=== PATIENT | female | born 1960 | race African-American/Black ===

== ENCOUNTER 2019-07-15 14:07 | Emergency (ER) | payer MEDICARE, MEDICAID ==
[~2019-07-15] VITALS: Ht 165.1 cm; Wt 154.6 kg
[~2019-07-15 14:07] MED LIST: CEPH-571 PO; CLON-529 PO; FURO-150 PO; LOSA25TA96 PO; METF500T PO; OMEP-84 PO; POTA8TAB46 PO
[2019-07-15 14:12] VITALS: BP 170/90
[2019-07-15] MEDS ORDERED: ROBCFL PO (15:43)
[2019-07-15] MEDS ORDERED: ALBU8HFA PO (15:43)
[2019-07-15] MEDS ORDERED: AMOX-580 PO (15:43)
== END 2019-07-15 16:02 | disposition home or self-care (01) ==
LOC: ER 14:08
DX: J20.9 Acute bronchitis, unspecified (principal); J32.9 Chronic sinusitis, unspecified; K21.9 Gastro-esophageal reflux disease without esophagitis; I10 Essential (primary) hypertension; E11.9 Type 2 diabetes mellitus without complications; M19.90 Unspecified osteoarthritis, unspecified site; G89.29 Other chronic pain; Z90.710 Acquired absence of both cervix and uterus; Z90.89 Acquired absence of other organs; Z98.890 Other specified postprocedural states; Z88.5 Allergy status to narcotic agent; Z79.84 Long term (current) use of oral hypoglycemic drugs; Z79.899 Other long term (current) drug therapy
CPT/HCPCS: 82948; 99283

== ENCOUNTER 2019-08-19 09:34 | Emergency (ER) | payer MEDICARE, MEDICAID ==
[~2019-08-19] VITALS: Ht 165.1 cm; Wt 154.6 kg
[2019-08-19 11:24] VITALS: BP 183/99
== END 2019-08-19 11:27 | disposition home or self-care (01) ==
LOC: ER 09:35
DX: S80.12XA Contusion of left lower leg, initial encounter (principal); I10 Essential (primary) hypertension; K21.9 Gastro-esophageal reflux disease without esophagitis; E11.9 Type 2 diabetes mellitus without complications; M19.90 Unspecified osteoarthritis, unspecified site; G89.29 Other chronic pain; Z90.710 Acquired absence of both cervix and uterus; Z90.89 Acquired absence of other organs; Z88.5 Allergy status to narcotic agent; Z79.899 Other long term (current) drug therapy; V00.811A Fall from moving wheelchair (powered), initial encounter; Y93.89 Activity, other specified; Y92.89 Other specified places as the place of occurrence of the external cause; Y99.9 Unspecified external cause status
CPT/HCPCS: 73590; 99284

== ENCOUNTER 2019-08-26 12:45 | Inpatient (IN) | payer MEDICARE, MEDICAID ==
[~2019-08-26] VITALS: Ht 165.1 cm; Wt 154.0 kg
[2019-08-26] MEDS ORDERED: predniSONE 20 mg tablet PO ONE (14:10)
[2019-08-26] MEDS ORDERED: ipratropium/albuterol 3ml nebule NEB ONE ×2 (14:10→16:00)
[2019-08-26 15:26] LABS: BASOPHILS # (AUTO) 0.1 X10'3 (0-0.2); BASOPHILS % (AUTO) 1.5 % (0-1); EOSINOPHILS # (AUTO) 0.1 X10'3 (0-0.9); EOSINOPHILS % (AUTO) 0.6 % (0-6); HEMATOCRIT 45.8 % (35.0-45.0); HEMOGLOBIN 14.9 g/dl (12.0-16.0); LYMPHOCYTES # (AUTO) 2.7 X10'3 (1.1-4.8); MEAN CORPUSCULAR HEMOGLOBIN 30.7 PG (27.0-31.0); MEAN CORPUSCULAR HGB CONC 32.5 g/dL (33.0-36.5); MEAN CORPUSCULAR VOLUME 94.6 FL (78-98); MEAN PLATELET VOLUME 9.9 FL (7.4-10.4); MONOCYTES # (AUTO) 0.6 X10'3 (0-0.9); MONOCYTES % (AUTO) 6.7 % (2-12); NEUTROPHILS # (AUTO) 5.2 X10'3 (1.8-7.7); NEUTROPHILS % (AUTO) 60.2 % (42-75); PLATELET COUNT 232 X10'3 (140-440); RED BLOOD COUNT 4.84 X10'6 (4.20-5.60); RED CELL DISTRIBUTION WIDTH 13.5 % (11.5-14.5); WHITE BLOOD COUNT 8.7 X10'3 (4.5-11.0)
[2019-08-26] MEDS ORDERED: ondansetron 4mg rapidly disintigrating tab PO ONE (15:30)
[2019-08-26 16:13] LABS: ALANINE AMINOTRANSFERASE 16 U/L (12-78); ALBUMIN 2.9 G/DL (3.4-5.0); ALBUMIN/GLOBULIN RATIO 0.5 (1.1-1.5); ALKALINE PHOSPHATASE 71 IU/L (46-116); ANION GAP 3 (8-16); ASPARTATE AMINO TRANSFERASE 14 U/L (10-37); BILIRUBIN,TOTAL 0.4 MG/DL (0.1-1.0); BLOOD UREA NITROGEN 23 MG/DL (7-18); BUN/CREATININE RATIO 18.7 (6.6-38.0); CALCIUM 8.3 MG/DL (8.5-10.1); CHLORIDE 107 MMOL/L (99-107); CREATININE 1.23 MG/DL (0.40-0.90); GLUCOSE 100 MG/DL (70-104); SODIUM 144 MMOL/L (135-145); TOTAL CARBON DIOXIDE 33.9 MMOL/L (24-32); TOTAL PROTEIN 8.4 G/DL (6.4-8.2); eGFR 54 ML/MIN
[2019-08-26] MEDS ORDERED: azithromycin/NS 500mg/250ml 250 ML IV ONE (16:40)
[2019-08-26] MEDS ORDERED: magnesium 4gm in 100ml NS 100 ML IV PRN (17:05)
[2019-08-26] MEDS ORDERED: magnesium Cl slow-release 64mg tablet PO PRN (17:05)
[2019-08-26] MEDS ORDERED: potassium Cl 20 mEq SR tablet PO PRN ×2 (17:05)
[2019-08-26] MEDS ORDERED: ipratropium/albuterol 3ml nebule NEB PRN ×2 (17:05)
[2019-08-26] MEDS ORDERED: potassium CL 10mEq/100ml bag 100 ML IV PRN ×2 (17:05)
[2019-08-26] MEDS ORDERED: ondansetron/PF 4mg/2ml inj IV PRN (17:05)
[2019-08-26] MEDS ORDERED: acetaminophen 325mg tablet PO PRN (17:05)
[2019-08-26] MEDS ORDERED: magnesium 2GM in 50ml NS 50 ML IV PRN (17:05)
[2019-08-26] MEDS ORDERED: furosemide 10 MG/1 ML 10ml inj IV ONE (17:35)
[2019-08-26] MEDS: K and/or MAG REPLACEMENT MC SCH (20:00)
[2019-08-26] MEDS ORDERED: cloNIDine 0.1 mg tablet PO ONE (20:25)
--- NOTE | 2019-08-26 20:25 | NUR ---
brought up from [facility] of urine amb few steps gurney to the bed. tolerated fair. skin care done settled into bed. orientated to the unit.vitals taken.
[2019-08-26] MEDS ORDERED: glucagon, human recombinant 1mg kit SUBCUT PRN (20:30)
[2019-08-26] MEDS ORDERED: MESSAGE TO PHARMACY PO ONE (20:30)
[2019-08-26] MEDS ORDERED: dextrose ORAL solution 15 GM/59 ML bottle PO PRN ×2 (20:30)
[2019-08-26] MEDS ORDERED: dextrose 50%-water 50ml dispensing syringe IV PRN ×2 (20:30)
--- NOTE | 2019-08-26 20:31 | NUR ---
Patient in room ED 2. I have received report from DELANO YBARRA RN and had the opportunity to ask questions and will assume patient care upon arrival to the floor. Addendum: 08/26/19 at 2031 by Grace Mitchell RN Amended: Links added.
[2019-08-26 20:58] VITALS: BP 169/105
[2019-08-26] MEDS: heparin, porcine 5000 units/ml vial SQ SCH (21:25)
--- NOTE | 2019-08-26 21:26 | NUR ---
pt put on tel #6.
--- NOTE | 2019-08-26 22:35 | NUR ---
pt too large for regular hosp bed switched to a larger one styk bed. pt tolerated well.
[2019-08-26 22:44] LABS: HEMOGLOBIN A1C 6.2 % (4.5-6.2)
[2019-08-26] MEDS: insulin glargine (Lantus) pen - multi-dose SQ SCH (22:49)
[2019-08-27] VITALS (7 sets, daily range): BP systolic 128–156; BP diastolic 71–96
--- NOTE | 2019-08-27 00:30 | NUR ---
resting on her side eyes closed without s&s of distress at this time.
--- NOTE | 2019-08-27 02:30 | NUR ---
resting eyes closed without changes.
--- NOTE | 2019-08-27 03:30 | NUR ---
remains resting without s&s of distress.
--- NOTE | 2019-08-27 04:35 | NUR ---
resting without changes.
[2019-08-27 05:25] LABS: BASOPHILS # (AUTO) 0.1 X10'3 (0-0.2); EOSINOPHILS % (AUTO) 0.1 % (0-6); HEMATOCRIT 43.6 % (35.0-45.0); HEMOGLOBIN 14.2 g/dl (12.0-16.0); LYMPHOCYTES # (AUTO) 2.2 X10'3 (1.1-4.8); LYMPHOCYTES % (AUTO) 25.5 % (21-51); MEAN CORPUSCULAR HEMOGLOBIN 31.4 PG (27.0-31.0); MEAN CORPUSCULAR HGB CONC 32.6 g/dL (33.0-36.5); MEAN CORPUSCULAR VOLUME 96.6 FL (78-98); MEAN PLATELET VOLUME 9.8 FL (7.4-10.4); MONOCYTES # (AUTO) 0.5 X10'3 (0-0.9); MONOCYTES % (AUTO) 6.1 % (2-12); NEUTROPHILS # (AUTO) 5.7 X10'3 (1.8-7.7); NEUTROPHILS % (AUTO) 67.3 % (42-75); PLATELET COUNT 210 X10'3 (140-440); RED BLOOD COUNT 4.52 X10'6 (4.20-5.60); RED CELL DISTRIBUTION WIDTH 13.5 % (11.5-14.5); WHITE BLOOD COUNT 8.4 X10'3 (4.5-11.0)
[2019-08-27 06:16] LABS: ALBUMIN 2.8 G/DL (3.4-5.0); ANION GAP 3 (8-16); BLOOD UREA NITROGEN 29 MG/DL (7-18); BUN/CREATININE RATIO 21.5 (6.6-38.0); CALCIUM 8.2 MG/DL (8.5-10.1); CHLORIDE 107 MMOL/L (99-107); CREATININE 1.35 MG/DL (0.40-0.90); MAGNESIUM 2.2 MG/DL (1.5-2.4); SODIUM 145 MMOL/L (135-145); TOTAL CARBON DIOXIDE 35.2 MMOL/L (24-32); eGFR 48 ML/MIN
[2019-08-27 06:17] LABS: GLUCOSE 120 MG/DL (70-104); POTASSIUM 4.7 MMOL/L (3.5-5.1)
--- NOTE | 2019-08-27 06:21 | NUR ---
Problems reprioritized. Patient report given, questions answered & plan of care reviewed with Dari Gutierrez. Addendum: 08/27/19 at 0625 by Grace Mitchell RN Amended: Links added.
--- NOTE | 2019-08-27 06:51 | NUR ---
Patient in room CA 346. I have received report from JULI Edwards and had the opportunity to ask questions and assume patient care.
[2019-08-27] MEDS: K and/or MAG REPLACEMENT MC SCH ×2 (08:00→19:18)
[2019-08-27] MEDS: heparin, porcine 5000 units/ml vial SQ SCH ×2 (08:46→19:30)
[2019-08-27] MEDS ORDERED: furosemide 10 MG/1 ML 10ml inj IV ONE (09:15)
[2019-08-27] MEDS ORDERED: methylPREDNISolone sod succ/PF 40mg inj. IV SCH (09:15)
--- NOTE | 2019-08-27 09:18 | NUR ---
pt not doing well this am desating, fatigue, lethargic, RT in to see pt and evaluated. oxygen increased to 4l NC. spoke to Dr. Melendrez and notified her of pts condition. per Dr. Melendrez lasix 80 iv x1, ABG, CXR, Solumedrol 40 iv bid, duoned q4hrs scheduled, tranfer to tele.
--- NOTE | 2019-08-27 11:06 | NUR ---
Rt still trying to get ABG. report called to JULI Valencia on tele
--- NOTE | 2019-08-27 11:09 | NUR ---
PAGER ID: [phone] MESSAGE: DR. CABALLERO, RECIEVING 459A/[facility] TO [id number], MAY WE HAVE A ROONEY CATH ORDER PLEASE R/T IMMOBILITY/MONITOR CRITICALLY ILL PT? MADISON [id number]. TY RECEIVED REPORT FROM JULI CADE OVER TELEPHONE.
--- NOTE | 2019-08-27 11:45 | NUR ---
PT TRANSFERRED TO TELEMETRY IN BED. PT ORIENTED TO ROOM, BED LOW, LOCKED, CALL LIGHT IN REACH. RT AT BEDSIDE. RN MADISON AWARE OF PTS CONDITION. DR. CABALLERO AWARE OF PTS CONDITION. STILL UNABLE TO GET ABG.
[2019-08-27] MEDS: ipratropium/albuterol 3ml nebule NEB SCH ×4 (11:58→23:10)
--- NOTE | 2019-08-27 12:00 | NUR ---
AGREE WITH PRIOR ASSESSMENT.
[2019-08-27] MEDS: methylPREDNISolone sod succ/PF 40mg inj. IV SCH ×2 (14:12→19:30)
[2019-08-27] MEDS: CefTRIAXone/D5W-Rocephin 1gm 50 ML IV SCH (14:14)
--- NOTE | 2019-08-27 14:41 | NUR ---
PAGER ID: [phone] MESSAGE: DR CABALLERO, [id number]/[facility], NEED OXYGEN ORDERS WITH PARAMETERS AND ORDERS FOR BIPAP PLEAASE. MADISON [id number]. TY.
[2019-08-27] MEDS: azithromycin/NS 500mg/250ml 250 ML IV SCH (15:20)
--- NOTE | 2019-08-27 15:38 | NUR ---
DM Consult: A1C <7 and not appropriate for DM eds at this time. Addendum: 08/27/19 at [address] Amended: Links added.
--- NOTE | 2019-08-27 18:47 | NUR ---
Problems reprioritized. Patient report given, questions answered & plan of care reviewed with JULI HOOKER.
--- NOTE | 2019-08-27 18:59 | NUR ---
Patient in room PCU 3025. I have received report from Erik BUSTOS and had the opportunity to ask questions and assume patient care.
[2019-08-27] MEDS: insulin Lispro (HumaLOG) vial - multi-dose SQ SCH (19:29)
[2019-08-27] MEDS: insulin glargine (Lantus) pen - multi-dose SQ SCH (21:17)
[2019-08-28 02:00] VITALS: BP 162/90
[2019-08-28] MEDS: methylPREDNISolone sod succ/PF 40mg inj. IV SCH ×4 (02:28→20:28)
[2019-08-28] MEDS: ipratropium/albuterol 3ml nebule NEB SCH ×5 (03:01→19:53)
[2019-08-28 06:00] VITALS: BP 151/104
--- NOTE | 2019-08-28 06:10 | NUR ---
Patient in room PCU 3025. I have received report from JULI Murphy and had the opportunity to ask questions and assume patient care.
--- NOTE | 2019-08-28 06:43 | NUR ---
Problems reprioritized. Patient report given, questions answered & plan of care reviewed with Blanche RN.
[2019-08-28] MEDS: K and/or MAG REPLACEMENT MC SCH ×2 (08:00→20:00)
[2019-08-28] MEDS: CefTRIAXone/D5W-Rocephin 1gm 50 ML IV SCH (08:31)
[2019-08-28] MEDS: heparin, porcine 5000 units/ml vial SQ SCH ×2 (08:32→20:28)
[2019-08-28] MEDS: insulin Lispro (HumaLOG) vial - multi-dose SQ SCH ×3 (09:03→18:47)
[2019-08-28] MEDS: azithromycin/NS 500mg/250ml 250 ML IV SCH (09:30)
[2019-08-28 10:03] LABS: BASOPHILS % (AUTO) 0.2 % (0-1); EOSINOPHILS % (AUTO) 0 % (0-6); HEMATOCRIT 43.4 % (35.0-45.0); HEMOGLOBIN 13.8 g/dl (12.0-16.0); LYMPHOCYTES # (AUTO) 0.9 X10'3 (1.1-4.8); LYMPHOCYTES % (AUTO) 9.8 % (21-51); MEAN CORPUSCULAR HEMOGLOBIN 30.4 PG (27.0-31.0); MEAN CORPUSCULAR HGB CONC 31.9 g/dL (33.0-36.5); MEAN CORPUSCULAR VOLUME 95.6 FL (78-98); MEAN PLATELET VOLUME 9.4 FL (7.4-10.4); MONOCYTES # (AUTO) 0.5 X10'3 (0-0.9); MONOCYTES % (AUTO) 6.1 % (2-12); NEUTROPHILS # (AUTO) 7.5 X10'3 (1.8-7.7); NEUTROPHILS % (AUTO) 83.9 % (42-75); PLATELET COUNT 205 X10'3 (140-440); RED BLOOD COUNT 4.54 X10'6 (4.20-5.60); RED CELL DISTRIBUTION WIDTH 13.3 % (11.5-14.5); WHITE BLOOD COUNT 8.9 X10'3 (4.5-11.0)
[2019-08-28 10:30] LABS: ALBUMIN 2.8 G/DL (3.4-5.0); ANION GAP 5 (8-16); CALCIUM 7.9 MG/DL (8.5-10.1); CHLORIDE 104 MMOL/L (99-107); CREATININE 1.35 MG/DL (0.40-0.90); GLUCOSE 169 MG/DL (70-104); MAGNESIUM 2.1 MG/DL (1.5-2.4); POTASSIUM 4.6 MMOL/L (3.5-5.1); SODIUM 139 MMOL/L (135-145); eGFR 48 ML/MIN
[2019-08-28 10:37] LABS: BLOOD UREA NITROGEN 41 MG/DL (7-18); BUN/CREATININE RATIO 30.4 (6.6-38.0)
[2019-08-28 11:00] VITALS: BP 143/78
[2019-08-28 15:00] VITALS: BP 163/106
--- NOTE | 2019-08-28 17:42 | NUR ---
sent to Dr Melendrez PAGER ID: [phone] MESSAGE: RE: Carmelita Ansari [id number]. Pt BP 153/106. -Blanche [id number]
[2019-08-28 18:00] VITALS: BP 153/106
--- NOTE | 2019-08-28 18:50 | NUR ---
Patient in room PCU 3025. I have received report from Blanche BUSTOS and had the opportunity to ask questions and assume patient care.
[2019-08-28] MEDS: lactobacillus rhamnosus 10,000 MMU CELLS/CAPSULE PO SCH (20:28)
[2019-08-28] MEDS: insulin glargine (Lantus) pen - multi-dose SQ SCH (21:06)
[2019-08-28 22:00] VITALS: BP 137/100
[2019-08-29] MEDS: ipratropium/albuterol 3ml nebule NEB SCH ×5 (00:29→16:28)
[2019-08-29 02:00] VITALS: BP 138/103
[2019-08-29] MEDS: methylPREDNISolone sod succ/PF 40mg inj. IV SCH ×3 (02:09→14:46)
[2019-08-29 05:41] LABS: BASOPHILS # (AUTO) 0.1 X10'3 (0-0.2); BASOPHILS % (AUTO) 0.6 % (0-1); EOSINOPHILS % (AUTO) 0 % (0-6); HEMATOCRIT 44.3 % (35.0-45.0); HEMOGLOBIN 14.2 g/dl (12.0-16.0); LYMPHOCYTES # (AUTO) 0.8 X10'3 (1.1-4.8); LYMPHOCYTES % (AUTO) 9.8 % (21-51); MEAN CORPUSCULAR HEMOGLOBIN 30.7 PG (27.0-31.0); MEAN CORPUSCULAR VOLUME 95.7 FL (78-98); MEAN PLATELET VOLUME 9.8 FL (7.4-10.4); MONOCYTES # (AUTO) 0.4 X10'3 (0-0.9); MONOCYTES % (AUTO) 4.3 % (2-12); NEUTROPHILS # (AUTO) 7.1 X10'3 (1.8-7.7); NEUTROPHILS % (AUTO) 85.3 % (42-75); PLATELET COUNT 213 X10'3 (140-440); RED BLOOD COUNT 4.63 X10'6 (4.20-5.60); RED CELL DISTRIBUTION WIDTH 13.3 % (11.5-14.5); WHITE BLOOD COUNT 8.4 X10'3 (4.5-11.0)
[2019-08-29 05:56] LABS: ALBUMIN 2.9 G/DL (3.4-5.0); ANION GAP 5 (8-16); BLOOD UREA NITROGEN 43 MG/DL (7-18); BUN/CREATININE RATIO 35.2 (6.6-38.0); CALCIUM 8.3 MG/DL (8.5-10.1); CHLORIDE 101 MMOL/L (99-107); CREATININE 1.22 MG/DL (0.40-0.90); GLUCOSE 177 MG/DL (70-104); MAGNESIUM 2.5 MG/DL (1.5-2.4); SODIUM 139 MMOL/L (135-145); TOTAL CARBON DIOXIDE 32.9 MMOL/L (24-32); eGFR 54 ML/MIN
--- NOTE | 2019-08-29 06:24 | NUR ---
Problems reprioritized. Patient report given, questions answered & plan of care reviewed with Bouchra BUSTOS.
--- NOTE | 2019-08-29 06:52 | NUR ---
Patient in room PCU 3025. I have received report from Katherine and had the opportunity to ask questions and assume patient care.
[2019-08-29 07:00] VITALS: BP 152/86
[2019-08-29] MEDS: heparin, porcine 5000 units/ml vial SQ SCH (07:57)
[2019-08-29] MEDS: CefTRIAXone/D5W-Rocephin 1gm 50 ML IV SCH (07:57)
[2019-08-29] MEDS: K and/or MAG REPLACEMENT MC SCH (08:00)
[2019-08-29] MEDS: lactobacillus rhamnosus 10,000 MMU CELLS/CAPSULE PO SCH (08:11)
[2019-08-29] MEDS: azithromycin/NS 500mg/250ml 250 ML IV SCH (09:00)
[2019-08-29] MEDS: insulin Lispro (HumaLOG) vial - multi-dose SQ SCH (09:06)
--- NOTE | 2019-08-29 09:53 | NUR ---
Patient complains of ABD discomfort. ABD is obese but ABD is firm to palpitation, denies tenderness. Pt's last BM was 08/26/14, patient agreed her discomfort did feel like constipation. Pt. stated she is passing gas. Will request laxative from MD.
[2019-08-29 11:00] VITALS: BP 150/100
--- NOTE | 2019-08-29 12:43 | NUR ---
Page sent to Dr. Melendrez [id number] Dee Ansari, Pt. hasn't had BM for 3 days, has ABD discomfort. Can we have order for milk of mag? Bouchra BUSTOS [id number]
[2019-08-29] MEDS ORDERED: azithromycin 250mg tablet PO SCH (13:00)
--- NOTE | 2019-08-29 13:30 | NUR ---
Patient had a BM, reports relief and doesnt need a laxative at this time.
[2019-08-29] MEDS ORDERED: IPRA3AMP9 NEB (13:32)
[2019-08-29] MEDS ORDERED: FURO-150 PO (13:32)
--- NOTE | 2019-08-29 14:30 | NUR ---
O2 Sat at rest on room air: 84% If below 89%: Recovery O2 Sat at rest on 2 LPM:___%:___% via (mask/nasal cannula, etc..) No further documentation is necessary. If O2 Sat did not drop below 89% on room air,ambulate patient on room air. O2 Sat while ambulating on room air:___% Recovery O2 Sat while ambulating on ___LPM:___% No further documentation is necessary. If patient does not drop below 89% while ambulating, he/she does not qualify for home O2. Addendum: 08/29/19 at 1431 by Bouchra Lewis RN Recovery O2 Sat at rest on 2 LPM: 91 % via nasal cannula, etc No further documentation is necessary.
[2019-08-29] MEDS ORDERED: pneumococcal 23-VAL P-sac vacc 25 mcg/0.5ml vial IMVAC ONE (14:40)
[2019-08-29] MEDS ORDERED: FLU VACC QS 2019-20 (6 MOS UP) 60 MCG/0.5 ML VIAL IMVAC ONE (14:40)
[2019-08-29 15:00] VITALS: BP 138/93
--- NOTE | 2019-08-29 16:08 | NUR ---
Patient was not covered with insulin for lunch because she was expected to DC prior to that however, patient needed oxygen delivery and stated she did not have a ride home. Oxygen delivery and CM working on how she is going to get home. MD is aware. Pt. stated she has a bus pass and doesn't mind using it since she has her power wheelchair here. CM made aware.
--- NOTE | 2019-08-29 17:24 | NUR ---
Patient voided and had a bowel movement prior to discharge, post flores catheter removal. Portable oxygen delivered and [facility] delivered home 02 concentrator to her house. Patients vital signs were stable at time of discharge. Discharge instructions and FU appointment reviewed with patient. PIV was DC'd. Skin care provided r/t hygiene and open area to L back. patient stated that is not knew for her. Patient walked to her power wheelchair and left in stable condition. Patient was reminded to knot picker cloth her prescription.
[2019-08-30] MEDS ORDERED: FLU VACC QS 2019-20 (6 MOS UP) 60 MCG/0.5 ML VIAL IMVAC ONE (10:00)
[2019-08-30] MEDS ORDERED: pneumococcal 23-VAL P-sac vacc 25 mcg/0.5ml vial IMVAC ONE (10:00)
--- NOTE | 2019-08-31 09:54 | NUR ---
Case Management DC follow up: LM/VM asking pt to rtn call for any questions/concerns, post DC status
== END 2019-08-29 17:23 | disposition home health service (06) | DRG 189 ==
LOC: ER 12:46 → ED HOLD 17:27 → SUR 3N 20:58 → PCU 3S 08-27 11:40
PROVIDERS: ADMIT Internal Medicine; ATTEND Internal Medicine
PROC: 5A09357 Assistance with Respiratory Ventilation, Less than 24 Consecutive Hours, Continuous Positive Airway Pressure (ICD-10-PCS; 2019-08-27)
PROC: 5A09357 Assistance with Respiratory Ventilation, Less than 24 Consecutive Hours, Continuous Positive Airway Pressure (ICD-10-PCS; 2019-08-28)
PROC: 3E02340 Introduction of Influenza Vaccine into Muscle, Percutaneous Approach (ICD-10-PCS; principal; 2019-08-29)
PROC: 3E0234Z Introduction of Serum, Toxoid and Vaccine into Muscle, Percutaneous Approach (ICD-10-PCS; 2019-08-29)
PROC: 5A09357 Assistance with Respiratory Ventilation, Less than 24 Consecutive Hours, Continuous Positive Airway Pressure (ICD-10-PCS; 2019-08-29)
DX: J96.00 Acute respiratory failure, unspecified whether with hypoxia or hypercapnia (principal); J44.1 Chronic obstructive pulmonary disease with (acute) exacerbation; N17.9 Acute kidney failure, unspecified; N18.9 Chronic kidney disease, unspecified; F17.210 Nicotine dependence, cigarettes, uncomplicated; G47.33 Obstructive sleep apnea (adult) (pediatric); I10 Essential (primary) hypertension; M19.90 Unspecified osteoarthritis, unspecified site; K21.9 Gastro-esophageal reflux disease without esophagitis; G89.29 Other chronic pain; M54.5 Low back pain; E11.22 Type 2 diabetes mellitus with diabetic chronic kidney disease; I12.9 Hypertensive chronic kidney disease with stage 1 through stage 4 chronic kidney disease, or unspecified chronic kidney disease; E11.649 Type 2 diabetes mellitus with hypoglycemia without coma; Z79.4 Long term (current) use of insulin; Z90.710 Acquired absence of both cervix and uterus; Z79.84 Long term (current) use of oral hypoglycemic drugs; Z88.5 Allergy status to narcotic agent; Z23 Encounter for immunization
CPT/HCPCS: 36415; 71045; 80048; 80053; 82948; 83036; 83735; 84484; 85025; 87081; 90732; 93005; 93306; 94640; 94660; 94760; 96365; 97116; 97161; 97530; 99285; G0378; J0456; J0696; J1644; J1815; J1940; J2920; J7512; Q2037

== ENCOUNTER 2019-09-19 08:45 | Emergency (ER) | payer MEDICARE, MEDICAID ==
[~2019-09-19] VITALS: Ht 165.1 cm; Wt 140.0 kg
[~2019-09-19 08:45] MED LIST changes: -CEPH-571 PO; +IPRA3AMP9 NEB
[2019-09-19 09:41] VITALS: BP 149/87
== END 2019-09-19 10:41 | disposition home or self-care (01) ==
LOC: ER 08:45
DX: S90.32XA Contusion of left foot, initial encounter (principal); I10 Essential (primary) hypertension; E11.9 Type 2 diabetes mellitus without complications; K21.9 Gastro-esophageal reflux disease without esophagitis; M19.90 Unspecified osteoarthritis, unspecified site; G89.29 Other chronic pain; Z90.710 Acquired absence of both cervix and uterus; Z90.89 Acquired absence of other organs; Z79.899 Other long term (current) drug therapy; Z88.5 Allergy status to narcotic agent; W26.8XXA Contact with other sharp object(s), not elsewhere classified, initial encounter; Y93.89 Activity, other specified; Y92.89 Other specified places as the place of occurrence of the external cause; Y99.8 Other external cause status
CPT/HCPCS: 73630; 99283